=== PATIENT | male | born 1985 | race African-American/Black ===

== ENCOUNTER 2019-06-11 22:00 | Emergency (ER) | payer OTHER ==
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
[2019-06-12] MEDS ORDERED: KETOROLAC TROMETHAMINE INJ/PF 30 MG/1 ML SDV IV ONE (03:51)
[2019-06-12] MEDS ORDERED: METOCLOPRAMIDE HCL INJ/PF 10 MG/2 ML SDV IV ONE (03:51)
[2019-06-12] MEDS ORDERED: DIPH/PERTUSS(ACELL)/TETANUS VAC/PF 0.5 ML SYR (>=10YO) IM ONE (03:52)
[2019-06-12] MEDS ORDERED: DIPHENHYDRAMINE HCL 50 MG/ML VIAL IV ONE (03:52)
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
--- NOTE | 2019-06-12 05:30 | RADIOLOGY REPORT (SQ) ---
CLINICAL HISTORY: headache COMPARISON: None. 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 FINDINGS: There is no acute hemorrhage, mass effect or midline shift. Iqbal-white differentiation is preserved. There is no hydrocephalus. There is no significant volume loss for age. The calvarium is intact. Orbits and globes are unremarkable. There are minimal mucous retention cysts in the maxillary sinuses. Mastoid air cells are clear. IMPRESSION: No acute intracranial findings.
[2019-06-12 05:59] VITALS: BP 138/78
== END 2019-06-12 05:58 | disposition home or self-care (01) ==
LOC: ER 22:00
DX: G44.209 Tension-type headache, unspecified, not intractable (principal); S01.511A Laceration without foreign body of lip, initial encounter; V89.2XXA Person injured in unspecified motor-vehicle accident, traffic, initial encounter; F17.200 Nicotine dependence, unspecified, uncomplicated
CPT/HCPCS: 99284; 90471; 96374; 96375; 70450; 70486; 90715; J1200; J1885; J2765

== ENCOUNTER → 2019-10-14 | Outpatient (CLI) | payer BC ==
[2019-10-14 09:45] VITALS: BP 133/91
--- NOTE | 2019-10-14 09:45 | ER RDC ASSESSMENT REPORT ---
Intake - In the Last 14 days --City/State: Recently moved to [place] from [place] Have you been in close contact with someone CONFIRMED: Yes Worked in Healthcare?: No - Symptoms Subjective Fever([place] feverish): Yes Chills: Yes Muscule Aches: Yes Runny Nose: Yes Sore Throat: Yes Cough (New or worsening chronic cough): Yes Shortness of breath: Yes Nausea or Vomiting: Yes Headache: Yes Abdominal Pain: Yes Diarrhea(3 or more loose stools in last 24 hours): Yes - Do you have any of the following Chronic lung disease: Asthma or emphysema or COPD: Yes Chronic Lung Disease Comment: History of asthma has not used an inhaler in over 15 years Cystic Fibrosis: No Diabetes: No High Blood Pressure: No Cardiovascular Disease: No Chronic Kidney Disease: No Chronic Liver Disease: No Chronic blood disorder like Sickle Cell Disease: No Weak immune system due to disease or medication: No Neurologic condition that limits movement: No Developmental delay - Moderate to Severe: No Recent (within past 2 weeks) or current : No Morbid Obesity (>100 pounds over ideal weight): No Obesity Comment: Height 5 feet 9 inches. Weight 161 pounds - Objective Temperature: 97.9 F Pulse Rate: 74 Respiratory Rate: 20 Blood Pressure: 133/91 O2 Sat by Pulse Oximetry: 98 Objective: Given above, testing performed: If Testing Performed: Test Specimen Type Sent to General - General Information source: Patient Notes: Patient here at [facility] for COVID testing. States has been with a cough for close to 9 days symptoms worsening since the recently moved to [place] from [place] last couple of weeks with family in [place] who have now tested positive for COVID. Patient has a history of asthma but has not used an inhaler in 15 years. Reports PCP in [place] has not established a PCP yet in [place]. Has continued to work with symptoms until this week. - Related Data Allergies/Adverse Reactions: No Known Allergies Allergy (Unverified 06/11/19 22:51) Past Medical History - General Information source: Patient - Social History Smoking Status: Current Every Day Smoker - Half a pack a day Family History: Reviewed & Not Pertinent Physical Exam - General General appearance: Appears well, Alert In distress: None Notes: PHYSICAL EXAMINATION: GENERAL: Well-appearing and in no acute distress. HEAD: Atraumatic, normocephalic. EYES: sclera anicteric, conjunctiva are normal. ENT: nares patent. Moist mucous membranes. NECK: Normal range of motion, supple without lymphadenopathy LUNGS: CTAB and equal. No wheezes rales or rhonchi. Resp even and unlabored. Expiratory wheeze noted especially to right some improvement with cough. Noted Dry cough with deep inhalation. HEART: Regular rate and rhythm without murmurs ABDOMEN: Soft, nontender, normal bowel sounds, no guarding. EXTREMITIES: No cyanosis. NEUROLOGICAL: Normal speech. PSYCH: Normal mood, normal affect. SKIN: Warm, Dry, normal turgor, Diagnostic Results Laboratory Results: Patient informed of negative rapid strep and negative rapid flu results. pEnding strep culture pending COVID testing results. Patient provided instructions regarding COVID to include: As a person under investigation for Covid 19, the [place] department of Health and Human Services, division of public health advises you to adhere to the following guidance until your test results are reported to you. If your test result is positive, you will receive additional information from your provider and your local health department at that time. Remain at home until you are cleared by the health provider or public health authorities. Keep a log of visitors to your home, notify any visitors to your home of your isolation status. If you plan to move to a new address or leave the [facility], notify the local health department in your County. Call your doctor or seek care if you have an urgent medical need. Before seeking medical care, call ahead to get instructions from the provider before arriving at the medical office clinic or hospital. Notify them that you are being tested for the virus that causes Covid 19 so that arrangements can be made, as necessary, to prevent transmission to others in the healthcare setting. Next, notify the local health department in your county. If a medical emergency arises and you need to call 911, inform the first responders that you are being tested for the virus that causes Covid 19. Next, notify the local health department in your county. Patient Education/Counseling Counseling/Education: Patient presents with upper respiratory symptoms worrisome for possible Covid 19. Patient does not have emergency worring symptoms such as difficulty breathing, shortness of breath, chest pain, pressure, confusion or cyanosis. Patient appears suitable for discharge. Patient to follow up today with PCP or local urgent care. TO ED for persistent or worsening symptoms. Patient's vital signs are stable and patient is nontoxic in appearance. Good return precautions have been discussed with patient, patient verbalized understanding and is agreeable with discharge plan of care at this time. RDC Discharge - Discharge Clinical Impression: COVID - 19 SCREENING Condition: Stable Disposition: Home; Selfcare
[2019-10-14 10:33] LABS: A TYPE INFLUENZA AG NEGATIVE (NEGATIVE); B INFLUENZA AG NEGATIVE (NEGATIVE)
== END ==
LOC: RDC 09:13
PROVIDERS: ATTEND Nurse Practitioner Family
DX: J02.0 Streptococcal pharyngitis (principal); Z20.828 Contact with and (suspected) exposure to other viral communicable diseases; R50.9 Fever, unspecified; R06.02 Shortness of breath; R05 Cough; M79.10 Myalgia, unspecified site; R09.89 Other specified symptoms and signs involving the circulatory and respiratory systems; R11.0 Nausea; R51 Headache; R10.9 Unspecified abdominal pain; R19.7 Diarrhea, unspecified; F17.200 Nicotine dependence, unspecified, uncomplicated
CPT/HCPCS: 36415; 87070; 87880; 87635; 87077; 87804; 99201; 99211; C9803

== ENCOUNTER 2020-03-04 07:24 | Emergency (ER) | payer OTHER, BC ==
[2020-03-04 08:00] VITALS: BP 118/78
[2020-03-04] MEDS ORDERED: ACETAMINOPHEN 325 MG TABLET PO ONE (08:24)
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
== END 2020-03-04 10:15 | disposition home or self-care (01) ==
LOC: ER 07:24
PROC: 2W3CX1Z Immobilization of Right Lower Arm using Splint (ICD-10-PCS; principal; 2020-03-04)
DX: M54.2 Cervicalgia (principal); R42 Dizziness and giddiness; M25.531 Pain in right wrist; M79.641 Pain in right hand; V87.7XXA Person injured in collision between other specified motor vehicles (traffic), initial encounter; F17.200 Nicotine dependence, unspecified, uncomplicated
CPT/HCPCS: 70450; 72125; 99284